=== PATIENT | male | born 1980 | race Caucasian/White ===

== ENCOUNTER 2021-09-18 15:27 | Emergency (ER) | payer MEDICAID, SELFPAY ==
[2021-09-18] MEDS ORDERED: Bisacodyl 5 MG TAB ONE ×2 (17:04→17:05)
== END 2021-09-18 17:19 | disposition home or self-care (01) ==
LOC: MADERS 15:27
DX: K59.00 Constipation, unspecified (principal); I10 Essential (primary) hypertension; F17.210 Nicotine dependence, cigarettes, uncomplicated; Z79.899 Other long term (current) drug therapy
CPT/HCPCS: 99283